=== PATIENT | female | born 1955 | race Caucasian/White ===

== ENCOUNTER 2025-03-27 16:12 | Emergency (ER) | payer MEDICARE, BC, SELFPAY ==
--- OUTSIDE RECORDS SUMMARY | 2025-03-22 10:30 | XMS_ITS | Encounter Summary ---
Author Organization [facility] Address [address] [place] [id number] Care Team Providers Care Bell Ringer Name Role Phone Unavailable Primary Care Provider Unavailabl e Reason for Visit * Reason Onset Date Comments Pre-visit Intake 03/22/2025 * Appointment Request (Routine) - Authorized Specialty Diagnoses / Procedures Referred By Randy ferreira Referred To Contact Oncology Referral ID Status Reason Start Date Expiration Date V isits Requested Visits Authorized [id number] Authorized 12/30/2024 04/01/2026 1 1 Encounter Details Date Type Department Care Team (Latest Contact Info) Description 03/22/2025 10:30 AM NURSING UNIT CLERK Clinical Communication Virtual Review in [place], [place] [address] [place] [address] Pre-visit Intake Social History Tobacco Use Types Packs/Day Years Used Date Smoking Tobacco: Never Passive Smoke Exposure: Past Smokeless Tobacco: Never Alcohol Use Standard Drinks/Week Comments Not Currently 0 (1 standard drink = 0.6 oz pur e alcohol) Comments No Sex and Gender Information Value Date Recorded Sex Assigned at Not on file Legal Sex Female 3:42 PM NURSING UNIT CLERK Gender Identity Not on file Sexual Orientation Not on file documented as of this encounter Plan of Treatment Not on file documented as of this encounter Visit Diagnoses Not on filedocumented in this encounter
--- OUTSIDE RECORDS SUMMARY | 2025-03-23 10:20 | XMS_ITS | Encounter Summary ---
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 200 [place] [address] Phone: tel: fax: [facility] Referral ID Status Reason Start Date Expiration Date V isits Requested Visits Authorized [id number] Authorized 03/24/2025 06/24/2026 1 1 NO GAMING WORKER * Outpatient (Routine) - Authorized Specialty Diagnoses / Procedures Referred By Contac t Referred To Contact Oncology WaJose Avila M.D. [address] [place] [phone] Phone: tel: fax: [facility] Referral ID Status Reason Start Date Expiration Date V isits Requested Visits Authorized [id number] Authorized 03/24/2025 09/23/2026 1 1 NO GAMING WORKER Reason for Visit * Outpatient (Routine) - Closed Specialty Diagnoses / Procedures Referred By Contmel t Referred To Contact Oncology Jose Perez M.D. [address] [place] [phone] Phone: tel: fax: [facility] Referral ID Status Reason Start Date Expiration Date Visits Re quested Visits Authorized [id number] Closed 09/01/2024 03/03/2026 1 1 Encounter Details Date Type Department Care Team (Late st Contact Info) Description 03/23/2025 10:20 AM CASINO GAMING WORKER Office Visit Department of Oncology in [place], [place] [address] [place] [phone] Jose Perez M.D. 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) Social History Tobacco Use Types Packs/Day Years Used Date Smoking Tobacco: Never Passive Smoke Exposure: Past Smokeless Tobacco: Never Alcohol Use Standard Drinks/Week Comments Not Currently 0 (1 standard drink = 0.6 oz pur e alcohol) Comments No Sex and Gender Information Value Date Recorded Sex Assigned at Not on file Legal Sex Female 3:42 PM CASINO GAMING WORKER Gender Identity Not on file Sexual Orientation Not on file documented as of this encounter Last Filed Vital Signs Vital Sign Reading Time Taken Comments Blood Pressure 122/76 03/23/2025 10:11 AM CASINO GAMING WORKER Pulse 97 03/23/2025 10:11 AM CASINO GAMING WORKER Temperature 36.5 C (97.7 F) 03/23/2025 10:11 AM CASINO GAMING WORKER Respiratory Rate - - Oxygen Saturation 96% 03/23/2025 10:11 AM CASINO GAMING WORKER Inhaled Oxygen Concentration - - Weight 121 kg (267 lb 12 oz) 03/23/2025 10:11 AM CASINO GAMING WORKER Height 161.2 cm (5' 3.47) 03/23/2025 10:[address] Body Mass Index 46.74 03/23/2025 10:11 AM CASINO GAMING WORKER documented in this encounter Progress Notes * Jose Perez M.D. - 03/23/2025 10:20 AM CST MEDICAL ONCOLOGY (MARINE FITTER CARE TEAM) FOLLOW-UP NOTE Local Oncologist: No care cps team lead to display [facility]ologist(s): Adrian Robin M.B.B.S., M.D. 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 A VUS was also identified in the BRCA2 gene, specifically named c.([id number])dup. [employer] Cdx Somatic testing [facility] HRS Status: Positive GIS Status: Positive Tumor Mutation BRCA1/BRCA2 Status: negative for a clinically significant mutation 08/04/[address] Finesse Pedroza: ROBOTIC-ASSISTED HYSTERECTOMY, BILATERAL SALPINGO-OOPHORECTOMY. LAPAROTOMY - OMENTECTOMY REPAIR HERNIA UMBILICAL WITHOUT MESH DEBULKING TUMOR 08/04/2020 Biopsy/Pathology Stage IIIB high grade serous carcinoma Forming a 6.5 x 5.1 x 3.6 cm mass, involving the right fallopian tube and right ovary. Endomyometrium with focal simple hyperplasia without atypica. Cervix and left adnexa are negative for tumor. Omentum positive. 08/30/2020 - 12/13/2020 Chemotherapy CARBOplatin AUC 6 / PACLitaxel ( MARINE FITTER ) Start Date: 08/30/2020 Completed 6 cycles combination therapy. Paclitaxel was dose reduced by 20% from cycle 2 and beyond. 02/20/2021 - Biological/Targeted/Hormone Therapy Started on niraparib 300mg daily initially. Changed to 200mg daily after thrombocytopenia was noted. Continues to fell well. No new concerning symptoms today. No recent hospitalizations, She is working with her family medicine team regarding her known type 2 diabetes. She denies any shortness of breath, chest pain, dizziness, early satiety, abdominal pain or vaginal bleeding. Medications: reviewed in [facility]. OBJECTIVE There were no vitals taken for this visit. Constitutional Appearance: Normal appearance. Eyes Conjunctiva/sclera: Conjunctivae normal. Cardiovascular Rate and Rhythm: Normal rate and regular rhythm. Pulmonary Effort: Pulmonary effort is normal. Breath sounds: Normal breath sounds. Abdominal Tenderness: There is no guarding or rebound. Musculoskeletal Right lower leg: No edema. Left lower leg: No edema. Skin Findings: No rash. Neurological Mental Status: She is alert. Psychiatric Mood and Affect: Mood normal. Behavior: Behavior normal. Lab and radiology data reviewed in [facility].. ASSESSMENT / PLAN Iram Pa is a 70 y.o. female who presents for followup with history as noted in oncology history. Current Therapy: Surveillance Current Disease Status: Not evaluated ECOG Performance Status: 0 Intent of Therapy: Curative Intent to Change Therapy: No Ovarian Cancer Data Elements: Hilger Status: sensitive Iram Pa is a 69 y.o. female who presents for followup. She is 4 years out from completion of adjuvant chemotherapy. She continued on PARP inhibitor maintenance therapy until February 2024. Leon continue to see her every six months until we reach 5 years. We will proceed with imaging in six months as her last imaging was done in February 2024. She will call if she develops any symptoms or has questions in the interim. All questions answered to the best of my ability and her satisfaction. Assessment & Plan Jose Kinney M.D. No orders of the defined types were placed in this encounter. 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
--- OUTSIDE RECORDS SUMMARY | 2025-03-27 16:15 | XMS_ITS | Clinical Summary ---
Author Organization [facility] Address [address] [place] [address] Care Team Providers Care Mechanical Systems Control Engineer Name Role Phone Unavailable Primary Care Provider Unavailabl e Source Comments Patient records contain information from all sites at [facility]. For routine questions regarding patient records, call [phone] during business hours, M-F 8:00 AM - 5:00 PM Central Time. Record requests for emergency care only can be directed to [phone] at any time.[facility] Allergies Active Allergy Reactions Criticality Noted Date Comments Lisinopril Cough Medium 02/23/20[address] Medic[address] tablet Take 81 mg by mouth daily. 09/04/19 17 Active flash glucose sensor (FreeStyle Carol 14 Day Sensor) kit DIRECTED. 09/28/19 20 Active hydroCHLOROth iazide (HYDRODIURIL) 25 mg tablet Take 25 mg by mouth daily. 04/21/20 20 Active lancets Dispense item covered by pt ins. 30 g , what is availabble Uses once daily. 02/12/20 17 Active losartan (COZAAR) 100 mg tablet Take 100 mg by mouth daily. 05/23/19 21 Active miscellaneous medical supply [facility] BIPAP machine for home use at pressure: autobilevel EPAP 6cm/h2O PS-6 IPAP max 25 cm/H2O, full face mask x1/3month with a full face cushion x1/mo Heated humidifier x 1/5 year, Humidifier chamber x 1/6mo, standard tubing x 1/3mo, Headgear x 1/6mo,Chin strap x 1/6 months, Filters:Disposab le x 2pk/1mo & Reusable x 1pk/6mo LILLIAN #99 Usage- daily 02/27/20 Active pen needle, diabetic 31 gauge x /16 needle FOR ADMINISTERING INSULIN AT HOME ONCE DAILY AND TO INJECT TRULICITY ONCE WEEKLY 06/24/19 Active simvastatin (ZOCOR) 10 mg tablet Take 10 mg by mouth at bedtime. 04/21/20 Active triamcinolone (KENALOG) 0.1 % cream Apply 1 application topically as needed. 08/25/19 Active metFORMIN (GLUCOPHAGE) 1,000 mg tablet Take 1,000 mg by mouth 2 (two) times a day with meals. Active naproxen sodium (ALEVE/ANAPRO X) 220 mg tablet Take 220 mg by mouth. 09/05/19 Active multivitamin tablet Take 1 tablet by mouth daily. Active Trulicity 3 mg/0.5 mL injection Inject 3 mg under the skin every 7 (seven) days. Active Jardiance 25 mg tablet Take 25 mg by mouth daily. Active insulin degludec (Tresiba Flextouch) 200 unit/mL (3 mL) injection Inject 74 Units under the skin daily. 02/10/20 Active Mounjaro 5 mg/0.5 mL injection pen Inject 5mg by subcutaneous route once weekly.* Active levothyroxine 137 mcg tablet take one tablet by mouth one time daily* Active levothyroxine (SYNTHROID, LEVOTHROID) 150 mcg tablet Take 150 mcg by mouth daily. 04/24/20 025 Discontinued Active Problems Problem Noted Date Diagnosed Date Malignant Neoplasm Of Ovary Laterality Unknown 0 11/29/2021 Overview (11/29/2021): Added automatically from request for surgery [id number] Malignant Neoplasm Of Fallopian Tube Right 08/04 Cancer Staging:Clinical stage from 08/08/2020:FIGO Stage IIIB(cT3b) - Signed by Brianda Sinha M.D. on 08/08/2020 Hyperplasia Endometrial With Atypia 07/19/2020 Overview (07/19/2020): Added automatically from request for surgery [id number] Mass Adnexal 07/19/2020 Overview (07/19/2020): Added automatically from request for surgery [id number] Encounters Date Type Department Care Team Description 03/23/2025 10:20 AM COAL CAGER Office Visit Department of Oncology in [place], [place] [address] [place] [address] Jose Perez M.D. 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) 03/22/2025 10:30 AM COAL CAGER Clinical Communication Virtual Review in [place], [place] [address] [place] [address] Pre-visit Intake from Last 3 Months Immunizations Immunization Administration Dates Next Due SARS-COV-2 (COVID-19) - PFIZ ER (Discontinued)(12 years or older) 01/11/2021,06/23/2020,06/02/2020 Social History Tobacco Use Types Packs/Day Years Used Date Smoking Tobacco: Never Passive Smoke Exposure: Past Smokeless Tobacco: Never Tobacco Cessation:Counseling Given: Not Answered Alcohol Use Standard Drinks/Week Comments Not Currently 0 (1 standard drink = 0.6 oz pur e alcohol) Comments No Sex and Gender Information Value Date Recorded Sex Assigned at Not on file Legal Sex Female 3:42 PM COAL CAGER Gender Identity Not on file Sexual Orientation Not on file Last Filed Vital Signs Vital Sign Reading Time Taken Comments Blood Pressure 122/76 03/23/2025 10:11 AM COAL CAGER Pulse 97 03/23/2025 10:11 AM COAL CAGER Temperature 36.5 C (97.7 F) 03/23/2025 10:11 AM COAL CAGER Respiratory Rate 14 09/01/2024 1:10 PM CDT Oxygen Saturation 96% 03/23/2025 10:11 AM COAL CAGER Inhaled Oxygen Concentration - - Weight 121 kg (267 lb 12 oz) 03/23/2025 10:11 AM COAL CAGER Height 161.2 cm (5' 3.47) 03/23/2025 10:[address] Body Mass Index 46.74 03/23/2025 10:11 AM COAL CAGER Plan of Treatment Health Maintenance Due Date Last Done Comments CT Colonography 1955 Cologuard 1955 FIT 1955 Hepatitis C Screening 1955 Depression Screening (Annual PHQ-2) 05/05/2024 Fall Risk Screen (Annual) 05/05/2024 COVID-19 Vaccine ( season) 2025 11/16/2024, 02/10/2024, 08/04/2023, Additional history exists Mammogram 03/17/2025 03/17/2024, 03/05, 12/27/2022, Additional history exists Creatinine Level (Kidney Function Test) 09/01/2025 09/01/2024, 09/01/2024, 2024, Additional history exists Potassium Level 09/01/2025 09/01/2024, 02/03, 07/30/2023, Additional history exists Sodium Level 09/01/2025 09/01/2024, 02/03, 07/30/2023, Additional history exists Thyroid Stimulating Hormone (TSH) test for thyroid function 11/16/2025 11/16/2024, 08/12/2024, 01/21/2022, Additional history exists Pneumococcal vaccine (50+ years) (3 of 3 - PCV20 or PCV21) 02/06/2026 02/06/2021, 07/21/2018, 07/03/2018 Fasting Glucose for Diabetes Screening 02/18/2028 02/17/2025, 11/16/2024, 09/01/2024, Additional history exists Colonoscopy 08/14/2032 08/14/2022 Colorectal Cancer Screening 08/14/2032 DTaP,Tdap,and Td Vaccines (3 - Td or Tdap) 05/18/2034 05/18/2024, 05/03/2014, 05/16/2004 Bone Density Scan (Osteoporosis Screen) Discontinued 05/22/2020 Zoster Vaccines Completed 05/23/2020, 11/02, 07/21/2018, Additional history exists RSV vaccine - (32-36 weeks) or 50+ years Completed 04/24/2023 Influenza Vaccine Completed 02/17/2025, , 03/06/2023, Additional history exists IPV Vaccines Aged Out No longer eligi ble based on patient's age to complete this topic Medical Devices Implanted Type Area Auto Design Detailer Device Identifier Shelf Expiration Date Model / Serial / Lot Hardware E.G. Pins/Screws/R ods Hardware e.g. 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) HEMATOLOGY/ONCOLOGY - BLOOD, EXTERNAL LAB RESULTS Routine 01/21/2022 12:47 PM CDT from Last 3 Months or Most Recently Relevant to Health Maintenance Results * (ABNORMAL) Creatinine, POCT (09/01/2024 10:55 AM CDT) Pathologist [facility] Creatinine, POCT, B 0.5(L) 0.6 - 1.0 mg/dL 09/01/2024 10:59 AM CDT PCDT Comment: ----ADDITIONAL INFORMATION---- Performed at the Point of Care Blood 09/01/2024 10:5 5 AM CDT 09/01/2024 11:00 AM CDT us Unknown Provider LAB POCT ORDERABLES - DEVICE Fi nal Result [facility] PERFORMING LABS [address] [place] [address], [facility] PCDT [facility] POC [address] [place] [address] * (ABNORMAL) Comprehensive Metabolic Panel (09/01/2024 10:25 AM CDT) Pathologist [facility] Potassium, S 3.9 3.6 - 5.2 mmol/L 09/01/2024 12:33 PM CDT DTL Sodium, S 141 135 - 145 mmol/L 09/01/2024 12:33 PM CDT DTL Chloride, S 101 98 - 107 mmol/L 09/01/2024 12:33 PM CDT DTL Bicarbonate, S 27 22 - 29 mmol/L 09/01/2024 12:33 PM CDT DTL Anion Gap 13 7 - 15 09/01/2024 12:33 PM CDT DTL BUN (Blood Urea Nitrogen), S 16 6 - 21 mg/dL 09/01/2024 12:33 PM CDT DTL Creatinine 0.57(L) 0.59 - 1.04 mg/dL 09/01/2024 12:33 PM CDT DTL Estimated GFR (eGFR) >90 >=60 mL/min/BS A 09/01/2024 12:33 PM CDT DTL Comment: Estimated GFR calculated using the 2020 CKD_EPI creatinine equation. Calcium, Total, S 9.4 8.8 - 10.2 mg/dL 09/01/2024 12:33 PM CDT DTL Glucose, S 219(H) 70 - 140 mg/dL 09/01/2024 12:33 PM CDT DTL Protein, Total, S 6.5 6.3 - 7.9 g/dL 09/01/2024 12:33 PM CDT DTL Albumin, S 4.0 3.5 - 5.0 g/dL 09/01/2024 12:33 PM CDT DTL Aspartate Aminotransferase (AST), S 21 8 - 43 U/L 09/01/2024 12:33 PM CDT DTL Alkaline Phosphatase, S 72 35 - 104 U/L 09/01/2024 12:33 PM CDT DTL Alanine Aminotransferase (ALT), S 22 7 - 45 U/L 09/01/2024 12:33 PM CDT DTL Bilirubin, Total, S 0.3 0.0 - 1.2 mg/dL 09/01/2024 12:33 PM CDT DTL Blood (Blood, Venous) 09/01/2024 10:25 AM CDT 09/01/2024 11:21 AM CDT us Kimmy Ramos APRN, C.N.P., M.S.N. LAB BLOOD ADD-ON Final Result [facility] [address] [place] [address], [place] DTL [facility] [address] [place] [address] * (ABNORMAL) Hematology/Oncology - Blood, External Lab Results (01/21/2022 12:47 PM CDT) EXT AST 24 2 - 40 OTHER (SPE CIFY IN JERKER) EXT ALT 25 8 - 45 OTHER (SPE CIFY IN JERKER) EXT Bilirubin, Total 0.4 0.2 - 1.2 mg/dL OTHER (SPECIFY IN JERKER) EXT TSH 3.39 0.35 - 4.94 OTHER (SPECIFY IN JERKER) EXT Cancer Antigen 125 (Ca 125) 9.0 <=35.0 OTHER (SPECIFY IN JERKER) EXT Sodium 137 135 - 145 mmol/L OTHER (SPECIFY IN JERKER) EXT Potassium 4.6 3.5 - 5.0 OTHER (SPECIFY IN JERKER) EXT Calcium, Total 9.4 8.5 - 10.5 OTHER (SPECIFY IN JERKER) EXT Creatinine 0.73 0.57 - 1.11 mg/dL OTHER (SPECIFY IN JERKER) EXT Glucose, 180 Min 124(A) 65 - 100 OTHER (SPECIFY IN JERKER) EXT eGFR-Non Black/ 90 >90 OTHER (SPECIFY IN JERKER) Blood 01/21/2022 12:4 7 PM CDT us Historical Provider LAB BLOOD NON ADD-ON Final R esult OTHER (SPECIFY IN JERKER) N/A from Last 3 Months or Most Recently Relevant to Health Maintenance Insurance [facility] Advance Directives For more information, please contact: [phone] * Full Code (Latest Code Status on File) Date Activated Date Inactivated Comments 12/05/2021 6:13 AM 12/05/2021 2:25 PM Question Answer Comments Full Code: Discussed * Full Code Date Activated Date Inactivated Comments 08/04/2020 6:01 AM 08/05/2020 6:27 PM Question Answer Comments Full Code: Discussed
--- OUTSIDE RECORDS SUMMARY | 2025-03-27 16:15 | XMS_ITS | Clinical Summary ---
Author Organization [facility] Address [address] [place] [id number] Care Team Providers Care Porcelain Finisher Name Role Phone Reyes Jung MD Primary Care Provider [phone] Allergies Active Allergy Reactions Criticality Noted Date Comments Lisinopril Cough Medium 02/23/2024 Medications MULTIVITAMIN ORAL take 1 tablet daily 0 Active aspirin (ECOTRIN) 81 mg enteric coated tablet Take 1 tablet by mouth once daily. 0 09/04/19 17 Active nystatin powder (MYCOSTATIN) powderIndications :Intertrigo Apply 1 Strip topically to affected area(s) 3 times daily. 60 g 2 07/17/19 22 Active triamcinolone (ARISTOCORT; KENALOG) 0.1 % creamIndications: Acute dermatitis Use twice daily for up to 2 weeks straight on area of itching or irritation 30 g 2 04/24/20 23 Active empagliflozin (Jardiance) 25 mg tabletIndications :Type 2 diabetes mellitus without complication, with long-term current use of insulin (HC) Take 1 Tablet (25 mg) by mouth once daily. 90 Tablet 3 08/18/19 25 Active hydroCHLOROthiazi de 25 mg tabletIndications :Essential hypertension Take 1 Tablet (25 mg) by mouth once daily. 90 Tablet 3 08/18/19 25 Active losartan 100 mg tabletIndications :Essential hypertension Take 1 Tablet (100 mg) by mouth once daily. 90 Tablet 3 08/18/19 25 Active metFORMIN 1,000 mg tabletIndications :Type 2 diabetes mellitus without complication, with long-term current use of insulin (HC) Take 1 Tablet (1,000 mg) by mouth two times daily with meals. 180 Tablet 3 08/18/19 25 Active pen needle (BD Insulin Pen Needle UF) 31 gauge x 5/16 (disposable insulin pen needle)Indication s:Controlled type 2 diabetes mellitus without complication, with long-term current use of insulin (HC) FOR ADMINISTERING INSULIN AT HOME ONCE DAILY AND TO INJECT TRULICITY ONCE WEEKLY 100 Each 08/18/19 25 Active simvastatin 10 mg tabletIndications :Mixed hyperlipidemia Take 1 Tablet (10 mg) by mouth once daily with evening meal. 90 Tablet 08/18/19 25 Active levothyroxine 137 mcg tabletIndications :Other specified hypothyroidism Take 1 Tablet (137 mcg) by mouth once daily. 90 Tablet 08/18/19 25 Active FreeStyle Carol 3 [place] for continuous blood glucose monitor (CGM)Indications: Type 2 diabetes mellitus without complication, with long-term current use of insulin (HC) To be used to read blood sugars follow surgical lead directions. 1 Each 09/01/19 25 Active FreeStyle Carol 3 Plus Sensor for continuous blood glucose monitor (CGM)Indications: Type 2 diabetes mellitus without complication, with long-term current use of insulin (HC) To be used to read blood sugars, follow surgical lead directions. Change each sensor every 15 days 6 Each 11/17/19 25 Active insulin degludec (U-200) (Tresiba FlexTouch U-200) 200 unit/mL (3 mL) penIndications:Ty pe 2 diabetes mellitus without complication, with long-term current use of insulin (HC) Inject 60 units subcutaneous once daily in the morning. 27 mL 11/17/19 25 Active tirzepatide (Mounjaro) 5 mg/0.5 mL penIndications:Ty pe 2 diabetes mellitus without complication, with long-term current use of insulin (HC) Inject 5 mg subcutaneous once weekly. 6 mL 3 12/07/19 25 Active BIPAPIndications: Obstructive sleep apnea BIPAP machine for home use at pressure: autobilevel EPAP 6cm/h2O PS-6 IPAP max 25 cm/H2O, full face mask x1/3month with a full face cushion x1/mo Heated humidifier x 1/5 year, Humidifier chamber x 1/6mo, standard tubing x 1/3mo, Headgear x 1/6mo,Chin strap x 1/6 months, Filters:Disposab le x 2pk/1mo & Reusable x 1pk/6mo LILLIAN #99 Usage- daily 1 Each 11 03/17/20 25 Active BiPapIndications: Obstructive sleep apnea BIPAP machine for home use at pressure: autobilevel EPAP 6cm/h2O PS-6 IPAP max 25 cm/H2O, full face mask x1/3month with a full face cushion x1/mo Heated humidifier x 1/5 year, Humidifier chamber x 1/6mo, standard tubing x 1/3mo, Headgear x 1/6mo,Chin strap x 1/6 months, Filters:Disposab le x 2pk/1mo & Reusable x 1pk/6mo LILLIAN #99 Usage- daily 1 Each 07/26/19 025 Discontin ued(Reord er (E-cancel not sent)) Active Problems Problem Noted Date Diagnosed Date Obesity, morbid 01/20/2023 Peripheral arterial disease 06/11/2021 Overview (06/11/2021): Mild on lifeline screening in 2020 Malignant neoplasm of fallopian tube 08/04/2020 [place] 05/28/2011 AHI-84 06/02/2011 Mixed hyperlipidemia 12/13/2008 Unspecified hypothyroidism 01/01/2008 Unspecified essential hypertension 06/02/2007 Assessment & Plan (11/10/2023 1:04 PM CDT): - Blood pressure stable but still elevated above goal range. Asymptomatic. - Patient will work on making some lifestyle changes with diet and exercise. - No dose adjustment today. Continue losartan 100 mg qd, HCTZ 25 mg qd. Consider adding 3rd agent (amlodipine?) at next visit if BP still above 130/80 goal. Type 2 diabetes mellitus wit hout complication, with long-term current use of insulin 03/29/2002 Assessment & Plan (11/10/2023 1:04 PM CDT): - A1C stable at 7.4% - Will increase Trulicity dose to 3 mg qweekly Resolved Problems Problem Noted Date Diagnosed Date Resolved Date Trigger little finger of left hand 11/10/2023 08/17/2024 Assessment & Plan (11/10/2023 1:07 PM CDT): -Advised patient to conservative treatment for now, including icing the base of the fifth finger about 2-3 times daily to reduce swelling and inflammation. Offered finger splinting as well, however patient deferred for now since she does need to use her hands quite frequently during the day to type on the computer. If symptoms worsen, could consider steroid injection in the future. Endometrial hyperplasia with atypia 07/19/2020 08/17/2024 Mass of uterine adnexa 07/19/202008/17 Unspecified sleep apnea 05/07/201105/06 Overview (05/07/2011): Hypoxia pre and post operatively 04/14 Encounters Date Type Department Care Team Description 03/17/2025 2:00 PM CHECK EXAMINER Office Visit [facility] [address] [place] [address] Al Cloud MD Sleep Follow-up (New ins. needs new Rx.) 03/17/2025 Telephone [facility] [address] [place] [address] Reyes Jung MD Letter 03/17/2025 Travel 02/21/2025 Orders Only [facility] Scanner 1 scan: (1-Ord) [facility], 02/21/2025 02/21/2025 Orders Only [facility] Scanner 1 scan: (1-Ord) [facility], 02/21/2025 02/21/2025 Telephone [facility] [address] [place] [address] Reyes Jung MD Results 02/17/2025 9:50 AM CDT Office Visit [facility] [address] [place] [address] Reyes Jung MD Diabetes 02/17/2025 Travel 02/14/2025 Telephone [facility] [address] [place] [address] Reyes Jung MD Lab (DIABETIC APPOINTMENT ) 01/06/2025 Telephone [facility] [address] [place] [address] Reyes Jung MD Callback (patient needs a call back to give reads to promotional advertising assistant ) from Last 3 Months Immunizations Immunization Administration Dates Next Due AMB INFLUENZA, IIV4 (AGE=>6M OS) MDV (Flu Clinic Only) 02/28/2020 COVID-19 VACCINE SPIKEVAX (M ODERNA 50MCG/0.5ML) 12YO+ PFS 11/16/2024,02/10/2024,08/04/2023 COVID-19 vaccine (Pfizer-Bio NTech 30mcg/0.3mL) 12YO+ BIVALENT PF, MDV 02/01/2022 COVID-19 vaccine (Pfizer-Bio NTech 30mcg/0.3mL) 12YO+ DOTTIE-SUCROSE PF, MDV 09/03/2021 COVID-19 vaccine (Pfizer-Bio NTech 30mcg/0.3mL) PF, MDV 06/23/2020,06/02/2020,06/02/2000 Hepatitis B (Adult) 11/13/2018,03/29/2014,2013 Influenza A (H1N1), Inactiva aashish (Age >=3 Years) 05/16/2009 Influenza Virus, Unspecified 03/02/2017,02/17/20 15,02/22/2014 Influenza, High-dose Quadriv alent Inactivated 02/23/2022,02/28/2020 Influenza, IIV3 (Age >=3 years) 03/03/20 13,02/02/2010,04/05/2009,03/21,03/18/2007,03/05/2006 Influenza, IIV4 02/21/2019,02/27/2016 Influenza, Inactivated AIIV4 (Age 65+ Years) Preserv Free 03/06/2023,02/06/2021 Influenza, Inactivated IIV3 (Age 65+ Years) Preserv Free 02/17/2025,02/10/2024,03/04/2018 Influenza,CCIIV4 PRESERV FREE 03/02/2018, 017 Pneumococcal Poly,23-Valent (Pneumovax) 07/21/2018,07/03/2018 Pneumococcal conj 13-Valent (Prevnar 13) 02/06/2021 RSV, Recombinant ADJ Reconst ituted (Arexvy 120MCG/0.5mL) 04/24/2023 Td (Age >=7 Years) 05/16/2004 Td, Preservative Free (age >= 7 Years) 5 Tdap 05/18/2024,05/03/2014 Zoster (Shingrix-RZV, recombinant) 05/23,11/13/2018,07/21/2018,07/03 Zoster (Zostavax-ZVL, live) 05/02/2015 Family History Medical History Relation Name Comments Heart Disease Father valve replacem ent Hyperlipidemia Father Hypertension Father Stroke Father Cancer-breast Mother age 72 Hypertension Mother Stroke Mother of spine, age 94 Asthma Sister 1 Allergies Sister 2 Other Sister 3 Migraine headac hes Cancer-ovarian No Family History Relation Name Status Comments Father Mother Sister 1 Sister 2 Sister 3 Social History Tobacco Use Types Packs/Day Years Used Date Smoking Tobacco: Never Smokeless Tobacco: Never Tobacco Cessation:Counseling Given: Yes Alcohol Use Standard Drinks/Week Comments Yes 0 (1 standard drink = 0.6 oz pur e alcohol) rare PHQ-2 Answer Date Recorded PHQ-2 TOTAL SCORE 0 08/17/2024 Social Connections Answer Date Recorded Do you often feel lonely or isolated from those around you? 0 08/17/2024 Alcohol Use Answer Date Recorded How often do you have a drink containing alcohol ? 0 02/17/2025 Average Number of Drinks Not on file 025 Frequency of Binge Drinking Not on file 02/02 Financial Resource Strain Answer Date R ecorded Difficulty of Paying Living Expenses 3 08/17/2024 Difficulty of Paying Living Expenses Not on file 08/17/2024 Food Insecurity Answer Date Recorded Do you worry your food will run out before you are able to buy more? 1 08/17/2024 Transportation Needs Answer Date Record ed Does lack of transportation keep you from medica l appointments? 1 08/17/2024 Does lack of transportation keep you from work, meetings or getting things that you need? 1 08/17/2024 Housing Stability Answer Date Recorded What is your housing situation today? 1 08/17/2024 Utilities Answer Date Recorded Do you have trouble paying f or utilities (for example, heat, electricity, water, phone)? 1 08/17/2024 Comments No Sex and Gender Information Value Date Recorded Sex Assigned at Not on file Legal Sex Female 5:27 AM CHECK EXAMINER Gender Identity Not on file Sexual Orientation Not on file Obstetrics History Para Term AB IAB SAB Ectopic Multiple Livin g Live Births 0 0 0 0 0 0 0 0 0 0 Last Filed Vital Signs Vital Sign Reading Time Taken Comments Blood Pressure 125/72 03/17/2025 2:04 PM CHECK EXAMINER Pulse 79 03/17/2025 2:04 PM CHECK EXAMINER Temperature 36.9 C (98.5 F) 03/08/2021 2:28 PM CDT Respiratory Rate 16 08/14/2022 10:5 5 AM CDT Oxygen Saturation 99% 03/17/2025 2:04 PM CHECK EXAMINER Inhaled Oxygen Concentration - - Weight 120.9 kg (266 lb 9.6 oz) 03/17/2025 2:04 PM CHECK EXAMINER Height 163.2 cm (5' 4.25) 08/17/2024 1 0:09 AM CDT Body Mass Index 45.4 08/17/2024 10:09 AM CDT Plan of Treatment Upcoming Encounters Date Type Department Care Team (Late st Contact Info) Description 03/28/2025 9:20 AM CHECK EXAMINER Ancillary Procedure [address] [address] 05/23/2025 9:30 AM CHECK EXAMINER Office Visit [facility] [address] [place] [address] Reyes Jung MD [address] [place] [address] Health Maintenance Due Date Last Done Comments Mammogram for age 45-75 03/17/2025 03/17/20, 12/27/2022, 11/06/2021, Additional history exists BMI (ht and wt on same day) for age 18+ 08/17/2025 08/17/2024, 01/20/2023, 05/23/2020, Additional history exists Depression screening for age 12+ 08/17/2025 08/17/2024, 08/17/2024, 08/04/2023, Additional history exists Medicare Wellness for age 65+ 08/18/2025 08/17/2024 Pneumococcal series for age 50+ (3 of 3 - PCV20 or PCV21) 02/06/2026 02/06/2021, 07/21/2018, 07/03/2018 Lipids for age 45-75 02/17/2030 02/17/2025, 02/09/2024, 01/20/2023, Additional history exists Colonoscopy through age 75 08/14/203208/14, 08/14/2022, 08/14/2022 Tetanus booster 05/18/2034 05/18/2024, 04/06, 05/16/2004, Additional history exists Hepatitis B series for 19+ Completed 11/13, 03/29/2014, 02/23/2014 Hepatitis C screening for ag e 18-79 Completed 08/25/2019 DEXA/DXA scan for age 65+ Completed 05/22/2020, Zoster (shingles) series for age 50+ Completed 05/23/2020, 11/13/2018, 07/21/2018, Additional history exists RSV vaccine for adults or Completed 04/24/2023 Influenza Vaccine Completed 02/17/2025, , 03/06/2023, Additional history exists Goals Goal Patient Goal Type Associated Problems Recent Progress Patient-Stated? Author BLOOD PRESSURE-MA INTAINS BP LESS THAN 130/80 Blood Pressure No Hazel Maldonado NP Procedures Procedure Name Priority Date/Time Associated Diagnosis Comments SCAN-EYE EXAM 02/21/2025 12:00 AM CDT SCAN-EYE EXAM 02/21/2025 12:00 AM CDT HEMOGLOBIN A1C MONITORING (POCT) Routine 02/17/2025 9:45 AM CDT Type 2 diabetes mellitus without complication, with long-term current use of insulin (HC) LIPID PANEL W REFLEX MEASURED LDL Routine 02/17/2025 9:45 AM CDT Mixed hyperlipidemia BASIC METABOLIC PANEL Routine 02/17/2025 9:45 AM CDT Essential hypertension XR MAMMO AMPARO BILAT SCREEN Routine 03/17/2024 1:10 PM CHECK EXAMINER Encounter for screening mammogram for malignant neoplasm of breast COLONOSCOPY SCREENING Routine 08/14/2022 9:19 AM CDT Screen for colon cancer XR DXA BONE DENSITY 2 SITES AXIAL Routine 05/22/2020 10:04 AM CHECK EXAMINER Postmenopausal ANTI HCV Routine 08/25/2019 9:15 AM CDT Need for hepatitis C screening test from Last 3 Months or Most Recently Relevant to Health Maintenance Results * SCAN-EYE EXAM (02/21/2025 12:00 AM CDT) us Scanner OTHER Final Result * SCAN-EYE EXAM (02/21/2025 12:00 AM CDT) us Scanner OTHER Final Result * LIPID PANEL W REFLEX MEASURED LDL (02/17/2025 9:45 AM CDT) CHOLESTEROL, TOTAL 153 <200 mg/dL 02/18/2025 7:10 AM CDT [facility] TRIGLYCERIDES 99 <150 mg/dL 02/18/2025 7:10 AM CDT [facility] HDL CHOLESTEROL 61 > OR = 50 mg/dL 02/18/2025 7:10 AM CDT [facility] NON HDL CHOLESTEROL 92 <130 mg/dL (calc) 02/18/2025 7:10 AM CDT [facility] Comment: For patients with diabetes plus 1 major ASCVD risk factor, treating to a non-HDL-C goal of <100 mg/dL (LDL-C of <70 mg/dL) is considered a therapeutic option. CHOL/HDLC RATIO 2.5 <5.0 (calc) 02/18/2025 7:10 AM CDT [facility] LDL-CHOLESTEROL 74 mg/dL (calc) 02/18/2025 7:10 AM CDT [facility] Comment: Reference range: <100 Desirable range <100 mg/dL for primary prevention; <70 mg/dL for patients with CHD or diabetic patients with > or = 2 CHD risk factors. LDL-C is now calculated using the Elia calculation, which is a validated novel method providing better accuracy than the Friedewald equation in the estimation of LDL-C. Wili DIMAS et al. KIMI. 2013;310(19): 2785-4637 (http://education.[employer].Wallop/faq/YST136) Blood BLOOD SPECIMEN / Unknown [facility] / Unknown 02/17/2025 9:45 AM CDT 02/17/2025 9:45 AM CDT Reyes Jung MD CHEMISTRY Final Resu lt Performing Organization Address [facility] Co de Phone Number [employer] [address] [address], [place] [phone] * (ABNORMAL) HEMOGLOBIN A1C MONITORING (POCT) (02/17/2025 9:45 AM CDT) [facility] POC HEMOGLOBIN A1C 7.3(H) <6.0 % OF TOTAL HGB 02/17/2025 9:57 AM CDT [facility] Comment: Any point of care results exhibiting inconsistency with the patient's clinical status should be repeated using a different testing method. Blood BLOOD SPECIMEN / Unknown [facility] / Unknown 02/17/2025 9:45 AM CDT 02/17/2025 9:45 AM CDT Reyes Jung MD CHEMISTRY Final Resu lt Performing Organization Address [facility] Co de Phone Number [employer] [address] [address], [place] [phone] [facility] [address] [place] [address], [place] [phone] * BASIC METABOLIC PANEL (02/17/2025 9:45 AM CDT) Pathologist [facility] SODIUM 141 135 - 146 mmol/L 02/18/2025 7:10 AM CDT [facility] POTASSIUM 4.0 3.5 - 5.3 mmol/L 02/18/2025 7:10 AM CDT [facility] CARBON DIOXIDE 31 20 - 32 mmol/L 02/18/2025 7:10 AM CDT [facility] GLUCOSE 91 65 - 99 mg/dL 02/18/2025 7:10 AM CDT [facility] Comment: Fasting reference interval CALCIUM 9.6 8.6 - 10.4 mg/dL 02/18/2025 7:10 AM CDT [facility] CREATININE 0.63 0.60 - 1.00 mg/dL 02/18/2025 7:10 AM CDT [facility] BUN/CREATININE RATIO SEE NOTE: 6 - 22 (calc) 02/18/2025 7:10 AM CDT [facility] Comment: Not Reported: BUN and Creatinine are within reference range. EGFR 95 > OR = 60 mL/min/1. 73m2 02/18/2025 7:10 AM CDT [facility] UREA NITROGEN (BUN) 19 7 - 25 mg/dL 02/18/2025 7:10 AM CDT [facility] ELECTROLYTE BALANCE 8 7 - 17 mmol/L (calc) 02/18/2025 7:10 AM CDT [facility] CHLORIDE 102 98 - 110 mmol/L 02/18/2025 7:10 AM CDT [facility] Blood BLOOD SPECIMEN / Unknown [facility] / Unknown 02/17/2025 9:45 AM CDT 02/17/2025 9:45 AM CDT us Reyes Jung MD CHEMISTRY Final Resu lt [facility] [place] [address] [place] [address], * XR MAMMO AMPARO BILAT SCREEN (03/17/2024 1:10 PM CHECK EXAMINER) Anatomical Region Laterality Modality BREASTS, Breast Left, Breast Right Bilateral Mammography Impressions 03/17/2024 2:00 PM CHECK EXAMINER There is no radiographic evidence for malignancy. Recommend annual mammograms. MAMMOGRAM ASSESSMENT: ACR 1 Negative PATIENTS: You will also receive a letter with your examination results in an easy to read format. If you have questions about your results, please contact your referring provider. Narrative 03/17/2024 2:00 PM CHECK EXAMINER For Patients: As a result of the Century Cures Act, medical imaging exams and procedure reports are released immediately into your electronic medical record. You may view this report before your referring provider. If you have questions, please contact your health care provider. XR MAMMO AMPARO BILAT SCREEN [[id number]] CLINICAL HISTORY: This is an asymptomatic 69 y.o. patient. INDICATION FOR EXAM: Mammogram Screening. TECHNIQUE: CC & MLO views were obtained. This study was evaluated with the assistance of Computer-Aided Detection. Breast Tomosynthesis was used in interpretation. COMPARISON FILM: Yes 12/27/22 [facility] 11/06/21 [facility] FINDINGS: There are scattered areas of fibroglandular density. There are no dominant masses, suspicious micro calcifications or areas of architectural distortion. us Reyes Jung MD MAMMO Final Resu lt * COLONOSCOPY (08/14/2022 9:12 AM CDT) 08/14/2022 9:12 AM CDT Narrative Transcriptions Wili Almodovar MD - 08/14/2022 10:47 AM CDT Patient Name: Iram Pa Procedure Date: 08/14/2022 Gender: Female Date of : 1955 Admit Type: Outpatient Procedure: Colonoscopy Proceduralist: Wili Almodovar MD , Gayathri Alvarez (Nurse), Brianda Asher (Nurse) Referring MD: Reyes Jung Indications/Pre-Op Diagnosis: Screening for colorectal malignant neoplasm, This is the patient's first colonoscopy Medications: Fentanyl 100 micrograms IV, Midazolam 2 mgIV, The level of sedation administered wasmoderate Procedure Description: The patient had risks, benefits and alternatives explained to andgave informed consent. The patient had a stable cardiopulmonary status and judged an adequate candidate for conscious sedation. The endoscope [id number] was passed through the anus andadvanced to the cecum, identified by appendiceal orifice and ileocecal valve.The colonoscopy was performed without difficulty. The patient toleratedthe procedure well. The quality of the bowel preparation was good. The ileocecal valve, appendiceal orifice, and rectum were photographed. Complications: No immediate complications. Estimated Blood Loss & Specimen: Estimated blood loss: none. Specimen collected - Yes and sent to Laboratory Findings: The perianal and digital rectal examinations were normal. A 1 mm polyp was found in the rectum. The polyp was sessile. Thepolyp was removed with a cold biopsy forceps. Resection and retrieval were complete. The exam was otherwise without abnormality on direct and retroflexion views. Impressions/Post-Op Diagnosis: - One 1 mm polyp in the rectum, removed with a cold biopsy forceps. Resected and retrieved. - The examination was otherwise normal on direct and retroflexionviews. Recommendation: - Patient has a contact number available for emergencies. The signsand symptoms of potential delayed complications were discussed with the patient. Return to normal activities tomorrow. Written discharge instructions were provided to the patient. - Resume previous diet. - Continue present medications. - Await pathology results. - Repeat colonoscopy is recommended. The colonoscopy date will be determined after pathology results from today's exam become available for review. Moderate Sedation: A time out was performed before the procedure. Moderate (conscious) sedation was administered by the endoscopy nurse and supervised bythe endoscopist. The following parameters were monitored: oxygensaturation, heart rate, blood pressure, EKG, CO2, respiratory rate, adequacy of pulmonary ventilation and reponse to care. Please refer to the patient's medical record flowsheets and nursing notes for moderate sedation details. Total physician intraservice time was 21 minutes. Wili Almodovar MD 08/14/2022 10:47:41 AM This report has been signed electronically. Note Initiated On: 08/14/2022 9:12 AM Procedure Code(s): --- Professional --- 50837, Colonoscopy, flexible; with biopsy, single or multiple Diagnosis Code(s): --- Professional --- Z12.11, Encounter for screening formalignant neoplasm of colon D12.8, Benign neoplasm of rectum CPT copyright 2021 [employer]. All rights reserved. The codes documented in this report are preliminary and upon foiling machine operator reviewmay be revised to meet current compliance requirements. Scope In: 10:16:35 AM Scope Withdrawal Time 0 hours 10 minutes 28 seconds Scope Out: 10:35:36 AM Wili Almodovar MD PROCEDURE ORD Final Res ult * XR DXA BONE DENSITY 2 SITES AXIAL [12388.1] (05/22/2020 10:04 AM CHECK EXAMINER) Anatomical Region Laterality Modality Spine, HIPS, HIPL, HIPR Other Narrative 05/24/2020 2:44 PM CHECK EXAMINER Please see scanned document for results of this study. Reyes Jung MD DEXA Final Resu lt * ANTI HCV (08/25/2019 9:15 AM CDT) HEPATITIS C ANTIBODY Non-React олег Non-React олег 08/25/2019 2:00 PM CDT [facility] Comment:Antibodies to HCV no t detected; does not exclude the possibility of exposure to HCV. Blood BLOOD SPECIMEN / Unknown Venipuncture / Unknown 08/25/2019 9:15 AM CDT 08/25/2019 9:17 AM CDT Reyes Jung MD SEND OUTS Final Resu lt [facility] [address] [place] [address], [place] from Last 3 Months or Most Recently Relevant to Health Maintenance Insurance [employer] [place] [employer] [place] ONLY Care Teams Porcelain Finisher Relationship Specialty Start Date End Date Reyes Jung MD [address] [place], [place] [id number] PCP - General Family Practice 04/08/18
--- OUTSIDE RECORDS SUMMARY | 2025-03-27 16:15 | XMS_ITS ---
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 on 08/08/2020 Hyperplasia Endometrial With Atypia 07/19/2020 Overview (07/19/2020): Added automatically from request for surgery [id number] Mass Adnexal 07/19/2020 Overview (07/19/2020): Added automatically from request for surgery [id number] Current Treatment and Therapy Plans No current plan information found. Past Treatment and Therapy Plans Flushes/Hydration Plan Name Start Date Discontinue Date Treatment Medications Discontinue Reason Plan Provider VASCULAR ACCESS PATENCY - PERIPHERAL INTRAVENOUS CATHETER AND RAPID INFUSION CATHETER 08/30/2020 01/24/2022 No medications scheduled. Therapy Complete Adrian Robin M.B.BSukhwinderSSukhwinder, MMarina. Hematology / Oncology Treatment 1 Plan Name Start Date Discontinue Date Treatment Medications Discontinue Reason Plan Provider Cycles CARBOplatin AUC 6 / PACLitaxel ( BLAST FURNACE OPERATOR ) 1 01/11/2021 CARBOplatin (Paraplatin) IVPB (BY AUC) in 250 mL (Paraplatin)PA CLItaxeL (TaxoL) IVPB in 500 mL (TaxoL) Therapy Complete Angel Guidry M.D. 6 of 6 cycles started Treatment Summaries Malignant Neoplasm Of Fallopian Tube Right (HCC)* Images from the original note were not included. Your Survivorship Care Plan Provided by [facility] on 04/16/21 General Information Patient name [place] (home) Date of 1955 Introduction This is your personal survivorship care plan. It is both a summary of your treatment history as well as a follow-up plan to guide you through the management of your continued medical care. The plan was developed by a multidisciplinary team of [facility] providers to help you understand, discuss, and plan post-treatment needs with your healthcare providers, including your primary care team. It includes detailed medical information regarding your treatment as well as information relating to potential short and long-term side- effects post-treatment. It also provides specific tools and directionfor self- care, including advice on wellness that encompasses both the physical and emotional aspects of your journey to recovery. What is Survivorship? The most widely used definition of survivorship care involves the following elements: 1. Prevention of recurrent and new cancers, and of other late effects; 2. Surveillance for cancer spread, recurrence, or second cancers; assessment of medical and psychosocial late effects; 3. Intervention for consequences of cancer and its treatment, for example: medical problems such aslymphedema and sexual dysfunction; symptoms, including pain and fatigue; psychological distress experienced by cancer survivors and their caregivers; and concerns related to employment, insurance, and disability; and 4. Coordination between specialists and primary care providers to ensure that all of the survivors health needs are met. Care Team Medical Oncologist or Coffee Sampler Adrian Robin M.B.B.S., MMarina. Your oncologist is your point of contact for any questions regarding the adverse effects of intravenous (I.V.) and oral cancer treatments (e.g. Nausea, vomiting, tingling in your hands/feet). Surgeon Dr. Pedroza Your surgeon is your point of contact for any questions regarding your incision. Primary Care Physician Dr. 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 Significant medical conditions has a past medical history of Apnea Sleep Obstructive, Diabetes Mellitus NOS, and Hypertension NOS. Alcohol use reports previous alcohol use. Tobacco use reports that she has never smoked. She has never used smokeless tobacco. 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 [email or web address] Cdx Somatic testing eSNF HRS Status: Positive GIS Status: Positive Tumor [...] 12/13/2020 Chemotherapy CARBOplatin AUC 6 / PACLitaxel 175 mg/m2( BLAST FURNACE OPERATOR ) Start Date: 08/30/2020 Completed 6 cycles combination therapy. Paclitaxel was dose reduced by 20% from cycle 2 and beyond. Making Healthy Choices Healthy food choices include a wide variety of fruits, vegetables, whole grains, poultry, and fish while minimizing refined grains, processed and red meats, desserts, and high?fat dairy products. Exercise after cancer treatment improves quality of life, fatigue, mood, muscle strength, and physical functioning. It also decreases the risk of cardiovascular disease. Work up to exercising 30 minutes/day at least 5 days/week, and strive to achieve a healthy weight (BMI 18.5?25). Minimize alcohol, and if you drink, do not drink more than 1 alcoholic beverage per day (5 oz of wine, 12 oz of beer, or 1 ounce of liquor). For some specific cancer types, alcohol use may increase the risk of recurrence; please talk with your provider. Tobacco use may also increase your risk of cancer recurrence or a new cancer. If you smoke, talk toyour doctor to help you quit. The [facility] can help. Stress management tools such as meditation, prayer, and breathing exercises may be helpful. If you develop feelings of worry, anxiety, sadness, or hopelessness that persist for > 2 weeks, talk to a health care provider. Sleep is important for healing and well-being. Most adults require 7?9 hours of sleep/night. If youare having difficulty sleeping, talk to your provider . Schedule of Surveillance Testing and Visits The frequency and nature of follow-up care is individualized based on the type of cancer, the type of treatment received, and the person???s overall health, including possible treatment-related problems. At follow-up appointments, the doctor may recommend tests to check for recurrence or to screen for other types of cancer. In many cases, it is not clear that special follow-up tests improve survival or quality of life. This is why it is important for the doctor to help determine what follow-up careplan is appropriate. The doctor may not need to perform any tests if the person appears to be in good physical condition and does not have any symptoms. It is important for the patient to talk with the doctor about any questions or concerns related to the follow-up care plan. With whom For how long Medical Oncology or Hematology visits Kimmy Ramos APRN First year post treatment Second year post treatment Third year post treatment and beyond Lab tests Kimmy Ramos APRN First year post treatment Second year post treatment Third year post treatment and beyond Imaging Kimmy Ramos APRN First year post treatment Second year post treatment Third year post treatment and beyond Follow-up care with your Primary Care Physician (PCP) Follow?up care with your primary care physician is recommended for age?appropriate cancer screening, for monitoring blood pressure, cholesterol, blood sugar, weight, and for other medical conditions. Follow-up care with your Primary Care Physician (PCP) Follow?up care with your primary care physician is recommended for age?appropriate cancer screening, for monitoring blood pressure, cholesterol, blood sugar, weight, and for other medical conditions. Symptoms to watch for Possible late and long-term effects of cancer treatment can include: Bone thinning Numbness and tingling of the hands and feet Heart problems Fatigue Please talk to your care team about ways to manage these side effects. In addition, please contact your healthcare provider with any new symptoms that may signify a cancer recurrence including pain that lasts more than a few weeks, difficulty breathing, or unintentional weight loss. Additional information from your provider:
[2025-03-27 16:18] VITALS: BP 151/70; PULSE 107; RESP 18; TEMP 36.4; O2SAT 100; BMI 43.1
--- NOTE | 2025-03-27 16:35 | CRLHL7_ITS ---
For Patients: As a result of the Century Cures Act, medical imaging exams and procedure reports are released immediately into your electronic medical record. You may view this report before your referring provider. If you have questions, please contact your health care provider. Indication: Fall. Trauma. Technique: CT of the cervical spine performed without IV contrast. Comparison: Cervical spine radiographs 03/27/2025. Findings: The cervical vertebral body heights appear maintained without fracture. Ticn-vz-ngqgkpgs multilevel disc degeneration. Osteopenia. Straightening of the cervical lordosis. Axyo-qg-mqvvffqv spondylosis with varying degrees of jhqg-ru-wpfsxylb spinal canal with moderate neural foraminal narrowing. The visualized lung apices appear clear. No prevertebral soft tissue swelling. Impression: 1. No acute osseous injury involving the cervical spine. 2. Xsij-ya-ckkwgzht spondylosis. Please note that all CT scans at this facility use dose modulation, iterative reconstruction, and/or weight-based dosing when appropriate to reduce radiation dose to as low as reasonably achievable. Dictated by Sam Esparza MD @ 03/27/2025 5:38:02 PM (Electronically Signed)
--- NOTE | 2025-03-27 16:35 | CRLHL7_ITS ---
For Patients: As a result of the Century Cures Act, medical imaging exams and procedure reports are released immediately into your electronic medical record. You may view this report before your referring provider. If you have questions, please contact your health care provider. Indication : Trauma. Fall. Technique : CT of the brain without intravenous contrast. Comparison: None relevant available at the time of interpretation. Findings: No acute blurring of the browne-white differentiation. There is no intracranial hemorrhage. The ventricles are proportionate to the cerebral sulci. The 4th ventricle is midline. Basal cisterns appear patent. No abnormal extra-axial fluid collection identified. Mild parenchymal volume loss. There is mild patchy periventricular hypodensity, favored to represent chronic ischemic microvascular disease. There is no intracranial mass, mass effect or midline shift identified. No depressed calvarial fracture. Impression: 1. No acute intracranial process. 2. Mild chronic ischemic microvascular disease. Please note that all CT scans at this facility use dose modulation, iterative reconstruction, and/or weight-based dosing when appropriate to reduce radiation dose to as low as reasonably achievable. Dictated by Sam Esparza MD @ 03/27/2025 5:28:03 PM (Electronically Signed)
--- NOTE | 2025-03-27 16:35 | CRLHL7_ITS ---
For Patients: As a result of the Cures Act, medical imaging exams and procedure reports are released immediately into your electronic medical record. You may view this report before your referring provider. If you have questions, please contact your health care provider. INDICATION: Fall, anterior and posterior shoulder pain TECHNIQUE: Shoulder radiograph 3 views left COMPARISON: None FINDINGS: Bone: No acute fractures or aggressive bone lesions are identified. Joint: The glenohumeral joint is unremarkable. The acromioclavicular joint has mild osteoarthritis. Soft tissue: Unremarkable. The visualized hemithorax is unremarkable in appearance. No radiopaque foreign bodies are seen. IMPRESSION: 1. No acute osseous injuries are noted. Dictated by: Foreign Young MD @ 03/27/2025 17:10:45 (Electronically Signed)
--- NOTE | 2025-03-27 16:39 | ED.FALL ---
HPI - Fall General Date Seen: 03/27/25 Chief Complaint: Fall/Minor Trauma Stated Complaint: Needs CT scan Time Seen by Provider: 03/27/25 16:13 Source: patient Mode of arrival: ambulatory Limitations: no limitations History of Present Illness HPI Narrative: Patient is a 70-year-old female presenting to the emergency department after a fall. She was walking down steps yesterday when she fell and slid down 7 steps. She landed on her left side. She is unsure she hit her head or not but does states she has a hematoma top of her head. It has improved since yesterday when this occurred. She continues to have left-sided neck pain so she went to the urgent care for evaluation. She was then sent to the emergency department for CT scans considering her age and mechanism of action. She is on aspirin but no other blood thinners. Has left shoulder pain and some mild left hip pain. Is able to ambulate though. She is able to move her shoulder. Denies any numbness or weakness. No other concerns noted. Related Data Home Medications ?Medication ?Instructions ?Recorded ?Confirmed aspirin 81 mg tablet 81 mg PO QDAY 03/27/25 03/27/25 empagliflozin 25 mg tablet 25 mg PO DAILY 03/27/25 03/27/25 (Jardiance) hydrochlorothiazide 25 mg tablet 25 mg PO DAILY 03/27/25 03/27/25 insulin degludec 200 unit/mL (3 60 unit subcut QAM 03/27/25 03/27/25 mL) subcutaneous pen (Tresiba FlexTouch U-200 insulin) levothyroxine 137 mcg tablet 137 mcg PO DAILY 03/27/25 03/27/25 losartan 100 mg tablet 100 mg PO DAILY 03/27/25 03/27/25 metformin 1,000 mg tablet 1,000 mg PO BID 03/27/25 03/27/25 simvastatin 10 mg tablet 10 mg PO QPM 03/27/25 03/27/25 tirzepatide 5 mg/0.5 mL 5 mg subcut 03/27/25 03/27/25 subcutaneous pen injector (Mounjaro) Allergies Allergy/AdvReac Type Severity Reaction Status Date / Time No Known Drug Allergies Allergy Verified 03/27/25 16:23 Review of Systems Narrative: Pertinent systems reviewed and were negative unless stated in HPI Exam Narrative: Exam Narrative: Const: Well-nourished, Well-developed, in mild distress Eyes: PERRL, no conjunctival injection, and symmetrical lids HENT: Atraumatic external nose and ears. Moist mucous membranes. No palpable skull fractures. Neck: Symmetric, trachea midline, No thyromegaly. Tenderness noted to left side of her paraspinal neck CVS: Peripheral pulses 2+ and equal in all extremities MSK:Extremities w/o deformity, Normal Active ROM, tenderness to left anterior and posterior aspect of the left shoulder. No midline spinal tenderness. Skin: Warm, Dry. Abrasion noted to left shoulder Neuro: Normal Muscle tone, No focal neurological deficits. Psych: Awake, Alert, & Oriented x3. Appropriate mood and affect. Const: Vital Signs, click to edit/add: Vital Signs - 24 hr 03/27/25 16:18 Temperature 97.6 F Pulse Rate [Left P ulse Oximeter] 107 H Respiratory Rate 18 Blood Pressure [Ri ght Upper Arm] 151/70 H Pulse Oximetry 100 Oxygen Delivery Me thod Room Air Course Vital Signs Vital signs: Initial Vital Signs Temperature 97.6 F 03/27/25 16:18 Temperature Source Temporal Artery Scan 03/27/25 16:18 Pulse Rate 107 H 03/27/25 16:18 Pulse Rhythm Regular 03/27/25 16:18 Respiratory Rate 18 03/27/25 16:18 Blood Pressure 151/70 H 03/27/25 16:18 Blood Pressure Mean 97 03/27/25 16:18 Pulse Oximetry 100 03/27/25 16:18 Oxygen Delivery Method Room Air 03/27/25 16:18 Vital Signs Temperature 97.6 F 03/27/25 16:18 Pulse Rate 107 H 03/27/25 16:18 Respiratory Rate 18 03/27/25 16:18 Blood Pressure 151/70 H 03/27/25 16:18 Pulse Oximetry 100 03/27/25 16:18 Oxygen Delivery Method Room Air 03/27/25 16:18 Temperature 97.6 F 03/27/25 16:18 Pulse Rate 107 H 03/27/25 16:18 Respiratory Rate 18 03/27/25 16:18 Blood Pressure 151/70 H 03/27/25 16:18 Pulse Oximetry 100 03/27/25 16:18 Oxygen Delivery Method Room Air 03/27/25 16:18 MDM - Fall MDM Narrative Medical decision making narrative: Patient is a 70-year-old female presenting to the emergency department after a fall. She was sent to the emergency department for CT scans. She is doing well but considering her age and mechanism of action I will CT her head and cervical spine. Will also x-ray the left shoulder. She is neurovascular intact at this time. Imaging interpreted by myself and the radiologist dependently showed no acute concerning abnormalities. No signs of fractures or bleeds. She is doing well at this time and is safe for discharge. She is agreeable to this plan. Diagnosis: Left-sided paraspinal neck pain, closed head injury Imaging Data CT scan head: Attestation: I have reviewed the pertinent imaging results. Radiologist's impression: 1. No acute intracranial process. 2. Mild chronic ischemic microvascular disease. Please note that all CT scans at this facility use dose modulation, iterative reconstruction, and/or weight-based dosing when appropriate to reduce radiation dose to as low as reasonably achievable. Dictated by Sam Esparza MD @ 03/27/2025 5:28:[address] scan cervical spine: Attestation: I have reviewed the pertinent imaging results. Radiologist's impression: 1. No acute osseous injury involving the cervical spine. 2. Thoy-ky-bnkwftnw spondylosis. Please note that all CT scans at this facility use dose modulation, iterative reconstruction, and/or weight-based dosing when appropriate to reduce radiation dose to as low as reasonably achievable. Dictated by Sam Esparza MD @ 03/27/2025 5:38:02 PM X-ray left shoulder: Attestation: I have reviewed the pertinent imaging results. Radiologist's impression: 1. No acute osseous injuries are noted. Dictated by: Foreign Young MD @ 03/27/2025 17:10:45 Discharge Plan Discharge Clinical Impression: Cervical strain Qualifiers: Encounter type: initial encounter Qualified Code(s): S16.1XXA - Strain of muscle, fascia and tendon at neck level, initial encounter Closed head injury Qualifiers: Encounter type: initial encounter Qualified Code(s): S09.90XA - Unspecified injury of head, initial encounter Patient Disposition: Home, Self-Care Condition: Stable Instructions: Cervical Sprain (ED) Additional Instructions: Take Tylenol and ibuprofen for pain. Return to emergency department for new or worsening symptoms. Follow up with the primary care provider if neck pain or shoulder pain persists Prescriptions: No Action levothyroxine 137 mcg tablet 137 mcg PO DAILY simvastatin 10 mg tablet 10 mg PO QPM metformin 1,000 mg tablet 1,000 mg PO BID hydrochlorothiazide 25 mg tablet 25 mg PO DAILY losartan 100 mg tablet 100 mg PO DAILY insulin degludec [Tresiba FlexTouch U-200] 200 unit/mL (3 mL) insulin pen 60 unit subcut QAM Jardiance 25 mg tablet 25 mg PO DAILY Mounjaro 5 mg/0.5 mL pen injector 5 mg subcut aspirin 81 mg tablet 81 mg PO QDAY Follow Up/Referrals: Reyes Jung MD [Primary Care Provider, Family Practice] Stand Alone Forms: Good Deal Info Instructions
== END 2025-03-27 17:55 | disposition home or self-care (01) ==
PROVIDERS: Emergency Provider Student in an Organized Health Care Education/Training Program; PCP Surgery
DX: S16.1XXA Strain of muscle, fascia and tendon at neck level, initial encounter (principal); M25.512 Pain in left shoulder; S09.90XA Unspecified injury of head, initial encounter; W10.9XXA Fall (on) (from) unspecified stairs and steps, initial encounter
CPT/HCPCS: 70450; 72125; 73030; 99283; 99284